=== PATIENT | female | born 1965 | race Caucasian/White ===

== ENCOUNTER 2020-12-30 20:33 | Emergency (ER) | payer OTHER ==
[~2020-12-30] VITALS: Ht 172.7 cm; Wt 77.1 kg
[~2020-12-30 20:33] MED LIST: CHLO25B PO; Cipro250 MG PO; DESV50 PO; LISI20 PO; POTCHL10ER PO; Prinivil10 MG PO; Pyridium100 MG PO; SULTRIDS PO; Zofran Odt4 MG PO
[2020-12-30] MEDS ORDERED: IBU600 MG PO (21:19)
[2020-12-30] MEDS ORDERED: Norco 5-325 Ta1 EACH PO (21:19)
== END 2020-12-30 21:35 | disposition home or self-care (01) ==
LOC: ER 20:33
DX: S62.306A Unspecified fracture of fifth metacarpal bone, right hand, initial encounter for closed fracture (principal); R51.9 Headache, unspecified; Z91.040 Latex allergy status; Z79.899 Other long term (current) drug therapy; W01.0XXA Fall on same level from slipping, tripping and stumbling without subsequent striking against object, initial encounter
CPT/HCPCS: 29125; 73130; 99283-25; A9270

== ENCOUNTER 2022-03-28 10:07 | Day surgery (SDC) | payer OTHER ==
[~2022-03-28] VITALS: Ht 172.7 cm; Wt 88.3 kg
[~2022-03-28 10:07] MED LIST changes: +IBU600 MG PO; +Norco 5-325 Ta1 EACH PO
--- NOTE | 2022-03-28 12:10 | NUR ---
03/28/22 1210 Alejandrina Pedro 4ML NORMAL SALINE USED TO ELEVATE APPENDACEAL ORIFICE POLYP
== END 2022-03-28 12:40 | disposition home or self-care (01) ==
LOC: ORSCSDS 10:07
PROVIDERS: Internal Medicine Gastroenterology
PROC: 3E0H8KZ Introduction of Other Diagnostic Substance into Lower GI, Via Natural or Artificial Opening Endoscopic (ICD-10-PCS; principal; 2022-03-28 11:30)
PROC: 0DBP8ZX Excision of Rectum, Via Natural or Artificial Opening Endoscopic, Diagnostic (ICD-10-PCS; principal; 2022-03-28 11:30)
PROC: 0DBH8ZX Excision of Cecum, Via Natural or Artificial Opening Endoscopic, Diagnostic (ICD-10-PCS; principal; 2022-03-28 11:30)
DX: Z12.11 Encounter for screening for malignant neoplasm of colon (principal); Z86.010 Personal history of colon polyps; D12.0 Benign neoplasm of cecum; D12.3 Benign neoplasm of transverse colon; K62.1 Rectal polyp; I10 Essential (primary) hypertension; E78.5 Hyperlipidemia, unspecified; Z79.899 Other long term (current) drug therapy; K64.8 Other hemorrhoids
CPT/HCPCS: 88305; J2704; J7120

== ENCOUNTER → 2024-01-29 | Outpatient (CLI) | payer OTHER ==
[~2024-01-29] MED LIST changes: +ATOR10 PO; +ESCI10 PO; +K-TAB ER20 MEQ PO; +LOSA25 PO; +MERIBIN5 MG PO; +OMEGA 3 PO; +VITAMIN D310 MC4 PO
[2024-02-12 14:16] LABS: HPV GENOTYPE 16 BY PCR Negative; HPV GENOTYPE 18 BY PCR Negative; HPV SOURCE Cervical; HPV, OTHER HIGH RISK BY PCR Negative
== END ==
LOC: LAB 17:43 → LAB SHORT 17:43
PROVIDERS: Nurse Practitioner Family
DX: Z00.00 Encounter for general adult medical examination without abnormal findings (principal); Z12.4 Encounter for screening for malignant neoplasm of cervix; Z11.51 Encounter for screening for human papillomavirus (HPV)
CPT/HCPCS: 87624; 88142

== ENCOUNTER 2024-01-30 09:48 | Day surgery (SDC) | payer OTHER ==
[~2024-01-30 09:48] MED LIST changes: -ATOR10 PO; -ESCI10 PO; -K-TAB ER20 MEQ PO; -LOSA25 PO; -MERIBIN5 MG PO; -OMEGA 3 PO; -VITAMIN D310 MC4 PO
[2024-02-04] MEDS ORDERED: ATOR10 PO (09:43)
[2024-02-04] MEDS ORDERED: MERIBIN5 MG PO (10:19)
[2024-02-04] MEDS ORDERED: ESCI10 PO (10:20)
[2024-02-04] MEDS ORDERED: LOSA25 PO (10:20)
[2024-02-04] MEDS ORDERED: OMEGA 3 PO (10:20)
[2024-02-04] MEDS ORDERED: VITAMIN D310 MC4 PO (10:20)
[2024-02-05] MEDS ORDERED: K-TAB ER20 MEQ PO (06:56)
== END 2024-02-11 22:42 | disposition home or self-care (01) ==
LOC: MOI US 09:48
DX: C50.412 Malignant neoplasm of upper-outer quadrant of left female breast (principal); Z17.0 Estrogen receptor positive status [ER+]
CPT/HCPCS: 19083; 77065; 88305; 88342; 88360; A4648; G0279

== ENCOUNTER 2024-02-05 06:39 | Day surgery (SDC) | payer OTHER ==
[2024-02-05] VITALS (10 sets, daily range): BP systolic 132–149; BP diastolic 76–99
[~2024-02-05] VITALS: Ht 172.7 cm; Wt 77.4 kg
[~2024-02-05 06:39] MED LIST changes: +ATOR10 PO; +CeFAZolin Sodium 2,000 MG in NS 100 ML IV SCH; +ESCI10 PO; +LOSA25 PO; +Lactated Ringer's 1,000 ML IV SCH; +MERIBIN5 MG PO; +OMEGA 3 PO; +VITAMIN D310 MC4 PO
[2024-02-05] MEDS ORDERED: K-TAB ER20 MEQ PO (06:56)
[2024-02-05] MEDS ORDERED: Lidocaine HCl 1% 30 ML SDV ONE (07:35)
[2024-02-05] MEDS ORDERED: Midazolam HCl 1MG / ML 2ML Vial IV SCH (07:55)
[2024-02-05] MEDS ORDERED: Scopolamine Hydrobromide Patch TOP SCH (07:55)
[2024-02-05] MEDS ORDERED: propofoL 20 ML IV ONE (07:56)
[2024-02-05] MEDS ORDERED: Ondansetron HCl 2 MG / ML 2ML Vial ONE (07:57)
[2024-02-05] MEDS ORDERED: Lidocaine HCl 2% 20 ML MDV ONE (07:57)
[2024-02-05] MEDS ORDERED: Dexamethasone Sod Phos 10 MG/ML 1ML VIAL ONE (07:57)
[2024-02-05] MEDS ORDERED: FentaNYL Citrate 50 MCG/ML 2 ML Injection ONE (07:57)
[2024-02-05] MEDS ORDERED: Ketorolac Tromethamine 30mg Vial ONE (08:24)
[2024-02-05] MEDS ORDERED: HYDROcodone 5-APAP 325 TAB PO PRN (08:55)
--- NOTE | 2024-02-05 09:53 | NUR ---
Discharge instructions reviewed with patient. Patient verbalizes understanding. Copy given to patient to take home. Supplies for first oncology visit placed in discharge folder. Dressings x2 c/d/i. Patient States Post-Procedure ride home has been arranged. Discharged via wheelchair to private car for ride home.
== END 2024-02-05 09:58 | disposition home or self-care (01) ==
LOC: ORSCMMR 06:39 → ORD 08:00 → ORSCMMR 09:58
PROVIDERS: Surgery
PROC: 0JH63WZ Insertion of Totally Implantable Vascular Access Device into Chest Subcutaneous Tissue and Fascia, Percutaneous Approach (ICD-10-PCS; principal; 2024-02-05 08:00)
PROC: B543ZZA Ultrasonography of Right Jugular Veins, Guidance (ICD-10-PCS; principal; 2024-02-05 08:00)
PROC: 05HM33Z Insertion of Infusion Device into Right Internal Jugular Vein, Percutaneous Approach (ICD-10-PCS; principal; 2024-02-05 08:00)
DX: C50.911 Malignant neoplasm of unspecified site of right female breast (principal); E78.5 Hyperlipidemia, unspecified; I10 Essential (primary) hypertension; E87.6 Hypokalemia; Z79.899 Other long term (current) drug therapy
CPT/HCPCS: 77001; A9270; C1788; J0690; J1100; J1642; J1885; J2250; J2405; J2704; J3010; J7120

== ENCOUNTER → 2025-04-05 | Outpatient (CLI) | payer OTHER ==
[~2025-04-05] MED LIST changes: -CeFAZolin Sodium 2,000 MG in NS 100 ML IV SCH; +K-TAB ER20 MEQ PO; -Lactated Ringer's 1,000 ML IV SCH
== END | disposition home or self-care (01) ==
LOC: LAB SHORT 14:48 → LAB 14:48
DX: L08.0 Pyoderma (principal)
CPT/HCPCS: 87070; 87102; 87205